=== PATIENT | male | born 2000 | race Hispanic/Latino ===

== ENCOUNTER 2024-04-13 09:06 | Emergency (ER) | payer OTHER ==
[~2024-04-13] VITALS: Ht 174 cm; Wt 85.4 kg
[2024-04-13 10:39] LABS: HEPATITIS B SURFACE ANTIBODY POSITIVE (POSITIVE)
[2024-04-13 10:52] LABS: HEPATITIS B SURFACE ANTIGEN NEGATIVE (NEGATIVE)
[2024-04-13 11:12] LABS: HEPATITIS C VIRUS ABY INDEX 0.09 INDEX (<0.8)
[2024-04-13 11:34] LABS: Trichomonas vaginalis (AMP) NOT DETECTED (NEGATIVE)
[2024-04-13 11:58] LABS: GC DNA AMPLIFICATION NEGATIVE (NEGATIVE)
[2024-04-13 13:02] LABS: HIV 1&2 SCREEN NEGATIVE (NEGATIVE)
[2024-04-13 13:40] LABS: KETONE, URINE AUTO RFX NEGATIVE (NEGATIVE); LEUKOCYTE ESTERASE UR AUTO RFX NEGATIVE (NEGATIVE); MUCUS, URINE RFX SMALL (NEGATIVE); NITRITE, URINE AUTO RFX NEGATIVE (NEGATIVE); RBC, URINE AUTO RFX 0 /HPF (0-3); SQUAM EPITHELIAL CELL UR AURFX 0 /HPF (0-6); WBC, URINE AUTO RFX 1 /HPF (0-3)
[2024-04-13 14:11] VITALS: BP 127/69; TEMP 97.8; O2SAT 100
== END 2024-04-13 14:11 | disposition home or self-care (01) ==
LOC: M ED 09:06
DX: N48.1 Balanitis (principal); F17.200 Nicotine dependence, unspecified, uncomplicated